=== PATIENT | male | born 1955 | race Two or more races ===

== ENCOUNTER → 2017-07-20 | Outpatient (CLI) | payer BC ==
[2016-02-18 11:00] VITALS: BP 141/77
[~2017-07-20] MED LIST: ALLO300T PO; ATOR10TA60 PO; CHOL200074 PO; DILT240C2 PO; ESCITALOPRAM OX10 MG PO; LINA5TAB4 PO; LISI-334 PO; LOSA100T6 PO; OMEG500C3 PO; PIOG30TA3 PO; PREG75CA PO; SODI650T PO
--- NOTE | 2017-07-20 18:21 | CARD ---
APPROVED REPORT EXAM: Two-dimensional and M-mode echocardiogram with Doppler and color Doppler. Other Information Quality : Average Technically limited study due to body habitus. INDICATION Pre-Op Cardiomegaly 2D DIMENSIONS Left Atrium(2D)5.2 (1.6-4.0cm)IVSd1.3 (0.7-1.1cm) LVDd6.2 (3.9-5.9cm)LVOT Diameter1.9 (1.8-2.4cm) PWd1.7 (0.7-1.1cm)LVDs4.6 (2.5-4.0cm) FS (%) 33.0 %SV100.3 ml LVEF(%)60.0 (>50%) Aortic Valve AoV Peak Cristiano.140.2cm/sAoV VTI27.7cm AO Peak GR.7.9mmHgLVOT Peak Cristiano.79.0cm/s LVOT VTI 14.75cmAO Mean GR.5mmHg RAOUL (VMAX)1.07rk3ZKN (VTI)1.52cm2 Mitral Valve MV E Rfrhuqtx17.8cm/sMV E Peak Gr.160mmHg MV DECEL [id number] A Erywqedh87.7cm/s MV RNP01knN/A Ratio2.8 MVA (PHT)4.15cm2 TDI E/Lateral E'12.9E/Medial E'9.5 Pulmonary Valve PV Peak Laivcmqy74.7cm/sPV Peak Grad.3mmHg Tricuspid Valve TR P. [id number]/sRAP [id number] TR Peak Gr.[id number] LEFT VENTRICLE The Left Ventricle is moderately dilated. There is mild concentric left ventricular hypertrophy. The left ventricular systolic function is normal and the ejection fraction is 60%. There is normal LV seg mental wall motion. RIGHT VENTRICLE The right ventricle is normal size. There is normal right ventricular wall thickness. The right ventr icular systolic function is normal. There is severe pulmonary hypertension. ATRIA The left atrium is moderately dilated. There is mobile echogenicity noted. The right atrium size is m ildly dilated The interatrial septum is intact with no evidence for an atrial septal defect or patent foramen ovale as noted on 2-D or Doppler imaging. AORTIC VALVE The aortic valve is calcified. The aortic valve is dificult to see the structures well Doppler and Co hazel Flow revealed mild aortic regurgitation. There is no significant aortic valvular stenosis. MITRAL VALVE The mitral valve is moderately thickened but opens well. Cannot rule out the possibility of a partial ly flail anterior mitral leaflet There is no evidence of mitral valve prolapse. There is no mitral va lve stenosis. Doppler and Color-flow revealed moderate to severe mitral regurgitation. TRICUSPID VALVE The tricuspid valve is normal in structure Doppler and Color Flow revealed moderate tricuspid regurgi tation. There is moderate pulmonary hypertension. Estimated PA pressure of 60 mmHg PULMONIC VALVE The pulmonary valve is normal in structure There is trivial pulmonic insufficiency. GREAT VESSELS The aortic root is normal in size. The ascending aorta is normal in size. The IVC is mildly dilated b ut collapses with inspiriation. PERICARDIAL EFFUSION There is no pleural effusion. There is no evidence of significant pericardial effusion. Critical Notification Critical Value: No <Conclusion> The left ventricular systolic function is normal and the ejection fraction is 60%. There is mild concentric left ventricular hypertrophy. The Left Ventricle is moderately dilated. The left atrium is moderately dilated. There is a mobile echogenicity noted in the LA The right atrium size is mildly dilated The aortic valve is calcified. The aortic valve is dificult to see the structures well Doppler and Color Flow revealed mild aortic regurgitation. The mitral valve is moderately thickened but opens well. Cannot rule out the possibility of a partial ly flail anterior mitral leaflet Doppler and Color-flow revealed moderate to severe mitral regurgitation. Doppler and Color Flow revealed moderate tricuspid regurgitation. There is moderate pulmonary hypertension. Estimated PA pressure of 60 mmHg There is trivial pulmonic insufficiency. The IVC is mildly dilated but collapses with inspiriation. There is no evidence of significant pericardial effusion.
== END | disposition home or self-care (01) ==
LOC: ECHO 08:31
PROVIDERS: ATTEND Internal Medicine Cardiovascular Disease
DX: Z01.810 Encounter for preprocedural cardiovascular examination (principal); I08.3 Combined rheumatic disorders of mitral, aortic and tricuspid valves; I27.20 Pulmonary hypertension, unspecified; Z86.79 Personal history of other diseases of the circulatory system
CPT/HCPCS: 93306

== ENCOUNTER 2018-02-20 16:52 | Inpatient (IN) | payer BC ==
[2018-02-20 17:37] LABS: ADD MAN DIFF? NO; BASO # 0.1 x10^3/uL (0.0-0.2); BASO % 1 % (0-3); EOS # 0.2 x10^3/uL (0.0-0.7); EOS % 2 % (0-3); LYMPH # 1.1 x10^3/uL (1.0-4.8); LYMPH % 8 % (24-48); MEAN CORPUSCULAR HEMOGLOBIN 34 pg (25-35); MEAN CORPUSCULAR HGB CONC 33 g/dL (31-37); MEAN CORPUSCULAR VOLUME 101 fL (79-100); MONO # 0.7 x10^3/uL (0.0-1.1); MONO % 5 % (0-9); NEUT # 11.8 x10^3uL (1.8-7.7); NEUT % 85 % (31-73); PLATELET COUNT 241 x10^3/uL (140-400); RED BLOOD COUNT 2.67 x10^6/uL (4.30-5.70); RED CELL DISTRIBUTION WIDTH 20.7 % (11.5-14.5); WHITE BLOOD COUNT 13.9 x10^3/uL (4.0-11.0)
[2018-02-20 17:43] LABS: FECAL OB PT NEGATIVE (NEG); NEG OBC FOB NEG; POS OBC FOB POS
[2018-02-20 17:45] LABS: INR 4.2 (0.8-1.1); PROTHROMBIN TIME PATIENT 39.6 SEC (11.7-14.0)
[2018-02-20 17:46] LABS: PARTIAL THROMBOPLASTIN TIME 73 SEC (24-38)
[2018-02-20 17:50] LABS: ANION GAP 13 (6-14); BLOOD UREA NITROGEN 31 mg/dL (8-26); BUN/CREATININE RATIO 8 (6-20); CALCIUM 8.2 mg/dL (8.5-10.1); CARBON DIOXIDE 23 mmol/L (21-32); CHLORIDE 95 mmol/L (98-107); CREATININE 3.7 mg/dL (0.7-1.3); GFR 16.7; GLUCOSE 91 mg/dL (70-99); POTASSIUM 3.5 mmol/L (3.5-5.1); SODIUM 131 mmol/L (136-145)
[2018-02-20 17:56] LABS: ALBUMIN 2.8 g/dL (3.4-5.0); ALBUMIN/GLOBULIN RATIO 0.8 (1.0-1.7); ALK PHOS 86 U/L (46-116); ALT (SGPT) 17 U/L (16-63); AST (SGOT) 16 U/L (15-37); CREATINE KINASE 41 U/L (39-308); TOTAL BILIRUBIN 0.5 mg/dL (0.2-1.0); TOTAL PROTEIN 6.3 g/dL (6.4-8.2)
[2018-02-20 18:05] LABS: TROPONINI 0.079 ng/mL (0.000-0.055)
[2018-02-20 18:06] LABS: CKMB MASS 2.1 ng/mL (0.0-3.6); CREATINE KINASE 40 U/L (39-308)
[2018-02-20 18:10] LABS: LACTIC ACID 1.4 mmol/L (0.4-2.0)
[2018-02-20] MEDS: ONDANSETRON PF 4 MG/2 ML VIAL. IV ×4 (18:33→19:59)
[2018-02-20] MEDS: fentaNYL PF VIAL 100 MCG/2 ML VIAL IV ×2 (18:33→19:57)
[2018-02-20] MEDS ORDERED: ACETAMINOPHEN 325 MG TABLET. PO (18:45)
[2018-02-20 19:53] LABS: PLT ESTIMATE ADEQUATE (ADEQUATE)
[2018-02-20 19:54] LABS: ANISOCYTOSIS MOD
[2018-02-20 19:55] LABS: POC GLUCOSE 96 mg/dL (70-99)
[2018-02-21] MEDS: fentaNYL PF VIAL 100 MCG/2 ML VIAL IV ×6 (00:31→18:05)
[2018-02-21] MEDS: ONDANSETRON PF 4 MG/2 ML VIAL. IV ×2 (03:23→07:22)
[2018-02-21 06:34] LABS: ALBUMIN 2.4 g/dL (3.4-5.0); ALBUMIN/GLOBULIN RATIO 0.7 (1.0-1.7); ALK PHOS 79 U/L (46-116); ALT (SGPT) 13 U/L (16-63); ANION GAP 12 (6-14); AST (SGOT) 13 U/L (15-37); BLOOD UREA NITROGEN 33 mg/dL (8-26); BUN/CREATININE RATIO 8 (6-20); CALCIUM 7.9 mg/dL (8.5-10.1); CARBON DIOXIDE 24 mmol/L (21-32); CHLORIDE 97 mmol/L (98-107); CREATININE 3.9 mg/dL (0.7-1.3); GFR 15.7; GLUCOSE 83 mg/dL (70-99); POTASSIUM 3.1 mmol/L (3.5-5.1); SODIUM 133 mmol/L (136-145); TOTAL BILIRUBIN 0.5 mg/dL (0.2-1.0); TOTAL PROTEIN 5.7 g/dL (6.4-8.2)
[2018-02-21 06:39] LABS: TROPONINI 0.067 ng/mL (0.000-0.055)
[2018-02-21] MEDS: PIPERACILLIN/TAZOBACTAM 2.25 GM in IV NORMAL SALINE 50ML 50 ML IV ×3 (09:20→22:15)
[2018-02-21] MEDS: METOPROLOL TART IMMED RELEASE 25 MG TABLET. PO (12:00)
[2018-02-21] MEDS: METOCLOPRAMIDE HCL 10 MG/2 ML VIAL. IV ×2 (12:15→18:04)
[2018-02-21] MEDS: levETIRAcetam 250 MG TABLET PO ×2 (12:38→21:19)
[2018-02-21] MEDS ORDERED: IV NORMAL SALINE 1000ML BAG 1,000 ML IV ×2 (13:21)
[2018-02-21] MEDS ORDERED: ALBUMIN HUMAN 25% 200 ML IV (13:30)
[2018-02-21] MEDS ORDERED: DIALYSIS PATIENT. MC ×2 (13:30)
[2018-02-21] MEDS: LACTOBACILLUS RHAMNOSUS GG 1 CAPSULE. PO ×2 (18:05→21:19)
[2018-02-21] MEDS: IV NORMAL SALINE 500ML BAG 500 ML IV (19:15)
[2018-02-21 19:46] LABS: INR 4.4 (0.8-1.1); PROTHROMBIN TIME PATIENT 41.4 SEC (11.7-14.0)
[2018-02-21] MEDS: ATORVASTATIN CALCIUM 10 MG TABLET. PO (21:19)
[2018-02-21] MEDS: traZODone 50 MG TABLET. PO (22:15)
[2018-02-22] MEDS: IV NORMAL SALINE 500ML BAG 500 ML IV ×2 (00:59→03:06)
[2018-02-22] MEDS: NOREPINEPHRIN 8MG/250ML PREMIX 250 ML IV (03:41)
[2018-02-22 04:57] LABS: BASO # 0.1 x10^3/uL (0.0-0.2); BASO % 1 % (0-3); EOS # 0.1 x10^3/uL (0.0-0.7); EOS % 1 % (0-3); HEMATOCRIT 24.6 % (39.0-53.0); HEMOGLOBIN 8.2 g/dL (13.0-17.5); LYMPH # 0.7 x10^3/uL (1.0-4.8); LYMPH % 6 % (24-48); MEAN CORPUSCULAR HEMOGLOBIN 34 pg (25-35); MEAN CORPUSCULAR HGB CONC 34 g/dL (31-37); MEAN CORPUSCULAR VOLUME 102 fL (79-100); MONO # 0.7 x10^3/uL (0.0-1.1); MONO % 6 % (0-9); NEUT # 9.2 x10^3uL (1.8-7.7); NEUT % 86 % (31-73); PLATELET COUNT 154 x10^3/uL (140-400); RED BLOOD COUNT 2.41 x10^6/uL (4.30-5.70); RED CELL DISTRIBUTION WIDTH 20.7 % (11.5-14.5); WHITE BLOOD COUNT 10.7 x10^3/uL (4.0-11.0)
[2018-02-22 05:09] LABS: INR 4.1 (0.8-1.1)
[2018-02-22 05:10] LABS: ADD MAN DIFF? YES
[2018-02-22 05:36] LABS: ANION GAP 9 (6-14); BLOOD UREA NITROGEN 14 mg/dL (8-26); CALCIUM 7.1 mg/dL (8.5-10.1); CARBON DIOXIDE 26 mmol/L (21-32); CHLORIDE 99 mmol/L (98-107); CREATININE 2.5 mg/dL (0.7-1.3); GFR 26.3; GLUCOSE 93 mg/dL (70-99); SODIUM 134 mmol/L (136-145)
[2018-02-22] MEDS: PIPERACILLIN/TAZOBACTAM 2.25 GM in IV NORMAL SALINE 50ML 50 ML IV ×2 (05:51→14:41)
[2018-02-22] MEDS ORDERED: POTASSIUM CHLORIDE 20MEQ 50 ML IV (06:45)
[2018-02-22] MEDS: POTASSIUM CHLORIDE 10MEQ 100 ML IV ×3 (07:00→08:00)
[2018-02-22] MEDS: POTASSIUM CHLORIDE 20 MEQ TABLET.ER. PO (10:52)
[2018-02-22] MEDS: LACTOBACILLUS RHAMNOSUS GG 1 CAPSULE. PO ×2 (10:52→20:44)
[2018-02-22] MEDS: levETIRAcetam 250 MG TABLET PO ×2 (10:52→20:44)
[2018-02-22 11:45] LABS: % BANDS 14 % (0-9); % EOS 1 % (0-5); % LYMPHS 5 % (24-48); % MONOS 4 % (0-10); % SEGS 76 % (35-66)
[2018-02-22 11:46] LABS: ANISOCYTOSIS MOD; PLT ESTIMATE ADEQUATE (ADEQUATE)
[2018-02-22] MEDS: ONDANSETRON PF 4 MG/2 ML VIAL. IV (17:57)
[2018-02-22 18:15] LABS: GIARDIA ANTIGEN Negative (Negative)
[2018-02-22] MEDS: DIGOXIN IV 500 MCG/2 ML AMPUL. IV (19:46)
[2018-02-22] MEDS: ATORVASTATIN CALCIUM 10 MG TABLET. PO (20:44)
[2018-02-22] MEDS: VANCOMYCIN 125 MG/2.5 ML ORAL SOLUTION. PO (23:22)
[2018-02-23] MEDS: DIGOXIN IV 500 MCG/2 ML AMPUL. IV (01:36)
[2018-02-23] MEDS: VANCOMYCIN 125 MG/2.5 ML ORAL SOLUTION. PO ×4 (05:41→23:23)
[2018-02-23 05:51] LABS: ADD MAN DIFF? NO
[2018-02-23 05:56] LABS: BASO # 0.1 x10^3/uL (0.0-0.2); BASO % 1 % (0-3); EOS # 0.3 x10^3/uL (0.0-0.7); EOS % 3 % (0-3); HEMATOCRIT 24.8 % (39.0-53.0); HEMOGLOBIN 8.2 g/dL (13.0-17.5); LYMPH # 0.6 x10^3/uL (1.0-4.8); LYMPH % 5 % (24-48); MEAN CORPUSCULAR HEMOGLOBIN 34 pg (25-35); MEAN CORPUSCULAR HGB CONC 33 g/dL (31-37); MEAN CORPUSCULAR VOLUME 101 fL (79-100); MONO # 0.7 x10^3/uL (0.0-1.1); MONO % 6 % (0-9); NEUT # 9.5 x10^3uL (1.8-7.7); NEUT % 85 % (31-73); PLATELET COUNT 156 x10^3/uL (140-400); RED BLOOD COUNT 2.45 x10^6/uL (4.30-5.70); RED CELL DISTRIBUTION WIDTH 20.3 % (11.5-14.5); WHITE BLOOD COUNT 11.2 x10^3/uL (4.0-11.0)
[2018-02-23 06:05] LABS: INR 3.1 (0.8-1.1); PROTHROMBIN TIME PATIENT 31.4 SEC (11.7-14.0)
[2018-02-23 06:07] LABS: C DIFF BY PCR Positive (Negative)
[2018-02-23 06:20] LABS: MRSA BY PCR Negative (Negative)
[2018-02-23 06:38] LABS: ANION GAP 9 (6-14); BLOOD UREA NITROGEN 20 mg/dL (8-26); CALCIUM 7.4 mg/dL (8.5-10.1); CARBON DIOXIDE 25 mmol/L (21-32); CHLORIDE 99 mmol/L (98-107); CREATININE 3.7 mg/dL (0.7-1.3); GFR 16.7; GLUCOSE 89 mg/dL (70-99); POTASSIUM 3.1 mmol/L (3.5-5.1); SODIUM 133 mmol/L (136-145)
[2018-02-23] MEDS ORDERED: IV NORMAL SALINE 1000ML BAG 1,000 ML IV (08:00)
[2018-02-23] MEDS ORDERED: DIALYSIS PATIENT. MC ×2 (11:00)
[2018-02-23] MEDS ORDERED: 0.9 % SODIUM CHLORIDE 10 ML DISP.SYRIN. IV ×2 (11:00)
[2018-02-23 12:23] LABS: CRYPTOSPORIDIUM AG Negative (Negative)
[2018-02-23 12:43] LABS: POC GLUCOSE 102 mg/dL (70-99)
[2018-02-23] MEDS: LACTOBACILLUS RHAMNOSUS GG 1 CAPSULE. PO ×2 (13:11→20:45)
[2018-02-23 13:53] LABS: POC GLUCOSE 128 mg/dL (70-99)
[2018-02-23] MEDS: levETIRAcetam 250 MG TABLET PO ×2 (13:59→20:45)
[2018-02-23] MEDS: ATORVASTATIN CALCIUM 10 MG TABLET. PO (20:45)
[2018-02-24 06:02] LABS: ANION GAP 7 (6-14); BLOOD UREA NITROGEN 10 mg/dL (8-26); CALCIUM 7.6 mg/dL (8.5-10.1); CARBON DIOXIDE 27 mmol/L (21-32); CHLORIDE 102 mmol/L (98-107); GFR 21.3; GLUCOSE 111 mg/dL (70-99); SODIUM 136 mmol/L (136-145)
[2018-02-24 06:22] LABS: INR 2.2 (0.8-1.1); PROTHROMBIN TIME PATIENT 23.8 SEC (11.7-14.0)
[2018-02-24] MEDS ORDERED: ONDANSETRON PF 4 MG/2 ML VIAL. IV (07:00)
[2018-02-24] MEDS ORDERED: MORPHINE SULFATE 2 MG/ML DISP.SYRIN. IV (07:00)
[2018-02-24] MEDS: IV RINGERS,LACTATED 1000ML 1,000 ML IV (07:00)
[2018-02-24] MEDS ORDERED: LIDOCAINE 1% PF 2 ML VIAL. ID (07:00)
[2018-02-24] MEDS ORDERED: fentaNYL PF VIAL 100 MCG/2 ML VIAL IV ×2 (07:00)
[2018-02-24] MEDS: VANCOMYCIN 125 MG/2.5 ML ORAL SOLUTION. PO ×4 (08:35→23:51)
[2018-02-24] MEDS: levETIRAcetam 250 MG TABLET PO ×2 (08:35→20:53)
[2018-02-24] MEDS: LACTOBACILLUS RHAMNOSUS GG 1 CAPSULE. PO ×2 (09:15→20:53)
[2018-02-24] MEDS: POTASSIUM CHLORIDE 10 MEQ TABLET.ER. PO ×3 (09:27→17:23)
[2018-02-24] MEDS: METOCLOPRAMIDE HCL 10 MG/2 ML VIAL. IV (12:00)
[2018-02-24] MEDS: ONDANSETRON PF 4 MG/2 ML VIAL. IV (12:05)
[2018-02-24] MEDS: ALBUMIN HUMAN 5% 500 ML IV ×2 (16:06→18:18)
[2018-02-24] MEDS: ATORVASTATIN CALCIUM 10 MG TABLET. PO (20:53)
[2018-02-24] MEDS: ACETAMINOPHEN 500 MG TABLET PO (20:55)
[2018-02-24] MEDS: traZODone 50 MG TABLET. PO (23:51)
[2018-02-25] MEDS: VANCOMYCIN 125 MG/2.5 ML ORAL SOLUTION. PO ×4 (05:38→23:20)
[2018-02-25 06:37] LABS: ANION GAP 8 (6-14); BLOOD UREA NITROGEN 15 mg/dL (8-26); CALCIUM 7.6 mg/dL (8.5-10.1); CARBON DIOXIDE 24 mmol/L (21-32); CHLORIDE 101 mmol/L (98-107); CREATININE 3.9 mg/dL (0.7-1.3); GFR 15.7; GLUCOSE 136 mg/dL (70-99); SODIUM 133 mmol/L (136-145)
[2018-02-25 06:38] LABS: POTASSIUM 2.8 mmol/L (3.5-5.1)
[2018-02-25 07:17] LABS: INR 1.5 (0.8-1.1); PROTHROMBIN TIME PATIENT 17.5 SEC (11.7-14.0)
[2018-02-25] MEDS ORDERED: POTASSIUM CHLORIDE 20 MEQ TABLET.ER. PO (07:30)
[2018-02-25] MEDS ORDERED: IV NORMAL SALINE 1000ML BAG 1,000 ML IV (09:05)
[2018-02-25] MEDS ORDERED: DIALYSIS PATIENT. MC ×2 (09:15)
[2018-02-25] MEDS ORDERED: 0.9 % SODIUM CHLORIDE 10 ML DISP.SYRIN. IV ×2 (09:15)
[2018-02-25] MEDS: ARGATROBAN PER PHARMACY. MC ×7 (09:47→20:01)
[2018-02-25 10:37] LABS: PARTIAL THROMBOPLASTIN TIME 48 SEC (24-38)
[2018-02-25] MEDS: LACTOBACILLUS RHAMNOSUS GG 1 CAPSULE. PO ×2 (12:14→21:03)
[2018-02-25] MEDS: SODIUM CHLORIDE 0.9% IV (12:14)
[2018-02-25] MEDS: ARGATROBAN IV (12:14)
[2018-02-25] MEDS: POTASSIUM CHLORIDE 10 MEQ TABLET.ER. PO ×3 (12:15→21:03)
[2018-02-25] MEDS: levETIRAcetam 250 MG TABLET PO ×2 (12:15→21:03)
[2018-02-25 15:00] LABS: PARTIAL THROMBOPLASTIN TIME 84 SEC (24-38)
[2018-02-25] MEDS: POTASSIUM CHLORIDE 20 MEQ TABLET.ER. PO (16:09)
[2018-02-25] MEDS: METOCLOPRAMIDE HCL 10 MG/2 ML VIAL. IV (18:02)
[2018-02-25] MEDS: CYCLOBENZAPRINE 10 MG TABLET. PO (18:40)
[2018-02-25 19:12] LABS: PARTIAL THROMBOPLASTIN TIME 71 SEC (24-38)
[2018-02-25] MEDS: ACETAMINOPHEN 500 MG TABLET PO (21:03)
[2018-02-25] MEDS: ATORVASTATIN CALCIUM 10 MG TABLET. PO (21:03)
[2018-02-25] MEDS: NOREPINEPHRIN 8MG/250ML PREMIX 250 ML IV (21:03)
[2018-02-25] MEDS: traZODone 50 MG TABLET. PO (22:46)
[2018-02-25 23:49] LABS: PARTIAL THROMBOPLASTIN TIME 74 SEC (24-38)
[2018-02-26 03:45] LABS: PARTIAL THROMBOPLASTIN TIME 84 SEC (24-38)
[2018-02-26 05:04] LABS: ADD MAN DIFF? NO
[2018-02-26 05:06] LABS: BASO # 0.1 x10^3/uL (0.0-0.2); BASO % 1 % (0-3); EOS # 0.3 x10^3/uL (0.0-0.7); EOS % 5 % (0-3); HEMATOCRIT 23.9 % (39.0-53.0); HEMOGLOBIN 8.1 g/dL (13.0-17.5); LYMPH # 1.3 x10^3/uL (1.0-4.8); LYMPH % 17 % (24-48); MEAN CORPUSCULAR HEMOGLOBIN 34 pg (25-35); MEAN CORPUSCULAR HGB CONC 34 g/dL (31-37); MEAN CORPUSCULAR VOLUME 101 fL (79-100); MONO # 0.9 x10^3/uL (0.0-1.1); MONO % 11 % (0-9); NEUT # 5.1 x10^3uL (1.8-7.7); NEUT % 66 % (31-73); PLATELET COUNT 147 x10^3/uL (140-400); RED BLOOD COUNT 2.36 x10^6/uL (4.30-5.70); RED CELL DISTRIBUTION WIDTH 19.2 % (11.5-14.5); WHITE BLOOD COUNT 7.7 x10^3/uL (4.0-11.0)
[2018-02-26 05:10] LABS: ANION GAP 7 (6-14); BLOOD UREA NITROGEN 11 mg/dL (8-26); CALCIUM 7.4 mg/dL (8.5-10.1); CARBON DIOXIDE 27 mmol/L (21-32); CHLORIDE 100 mmol/L (98-107); CREATININE 2.9 mg/dL (0.7-1.3); GFR 22.2; GLUCOSE 129 mg/dL (70-99); POTASSIUM 3.1 mmol/L (3.5-5.1); SODIUM 134 mmol/L (136-145)
[2018-02-26] MEDS: VANCOMYCIN 125 MG/2.5 ML ORAL SOLUTION. PO ×4 (06:09→23:27)
[2018-02-26] MEDS: ARGATROBAN PER PHARMACY. MC (07:27)
[2018-02-26] MEDS: LACTOBACILLUS RHAMNOSUS GG 1 CAPSULE. PO ×2 (09:43→21:48)
[2018-02-26] MEDS: levETIRAcetam 250 MG TABLET PO ×2 (09:43→21:49)
[2018-02-26] MEDS: POTASSIUM CHLORIDE 10 MEQ TABLET.ER. PO ×4 (09:43→21:50)
[2018-02-26 12:34] LABS: PROTHROMBIN TIME PATIENT 21.7 SEC (11.7-14.0)
[2018-02-26] MEDS: CYCLOBENZAPRINE 10 MG TABLET. PO ×2 (16:14→21:48)
[2018-02-26 18:14] LABS: POC GLUCOSE 130 mg/dL (70-99)
[2018-02-26] MEDS: ATORVASTATIN CALCIUM 10 MG TABLET. PO (21:48)
[2018-02-26] MEDS: ACETAMINOPHEN 500 MG TABLET PO (21:49)
[2018-02-26] MEDS: traZODone 50 MG TABLET. PO (23:27)
[2018-02-27] MEDS: diphenhydrAMINE 50 MG/ML VIAL IVP (05:07)
[2018-02-27] MEDS: VANCOMYCIN 125 MG/2.5 ML ORAL SOLUTION. PO ×3 (05:47→18:31)
[2018-02-27 06:13] LABS: ANION GAP 6 (6-14); BLOOD UREA NITROGEN 15 mg/dL (8-26); CALCIUM 7.6 mg/dL (8.5-10.1); CARBON DIOXIDE 25 mmol/L (21-32); CHLORIDE 100 mmol/L (98-107); CREATININE 3.9 mg/dL (0.7-1.3); GFR 15.7; GLUCOSE 115 mg/dL (70-99); POTASSIUM 3.4 mmol/L (3.5-5.1); SODIUM 131 mmol/L (136-145)
[2018-02-27 06:15] LABS: PARTIAL THROMBOPLASTIN TIME 84 SEC (24-38)
[2018-02-27] MEDS: ARGATROBAN PER PHARMACY. MC (07:43)
[2018-02-27] MEDS: LACTOBACILLUS RHAMNOSUS GG 1 CAPSULE. PO ×2 (09:03→20:17)
[2018-02-27] MEDS: levETIRAcetam 250 MG TABLET PO ×2 (09:04→20:17)
[2018-02-27] MEDS: POTASSIUM CHLORIDE 10 MEQ TABLET.ER. PO ×4 (09:04→20:17)
[2018-02-27] MEDS: SODIUM CHLORIDE 0.9% IV (13:46)
[2018-02-27] MEDS: ARGATROBAN IV (13:46)
[2018-02-27] MEDS: ATORVASTATIN CALCIUM 10 MG TABLET. PO (20:17)
[2018-02-27] MEDS: ACETAMINOPHEN 500 MG TABLET PO (20:21)
[2018-02-27] MEDS: traZODone 50 MG TABLET. PO ×2 (20:21→20:24)
[2018-02-28] MEDS: VANCOMYCIN 125 MG/2.5 ML ORAL SOLUTION. PO ×4 (00:12→17:25)
[2018-02-28] MEDS: diphenhydrAMINE 50 MG/ML VIAL IVP (07:59)
[2018-02-28] MEDS: POTASSIUM CHLORIDE 10 MEQ TABLET.ER. PO ×4 (07:59→21:15)
[2018-02-28] MEDS: LACTOBACILLUS RHAMNOSUS GG 1 CAPSULE. PO ×2 (09:00→21:14)
[2018-02-28] MEDS: levETIRAcetam 250 MG TABLET PO ×2 (09:01→21:15)
[2018-02-28 09:51] LABS: PARTIAL THROMBOPLASTIN TIME 73 SEC (24-38)
[2018-02-28] MEDS: ONDANSETRON PF 4 MG/2 ML VIAL. IV (11:47)
[2018-02-28] MEDS ORDERED: IV NORMAL SALINE 1000ML BAG 1,000 ML IV ×2 (13:18)
[2018-02-28] MEDS ORDERED: DIALYSIS PATIENT. MC ×2 (13:30)
[2018-02-28] MEDS: ARGATROBAN PER PHARMACY. MC (14:04)
[2018-02-28] MEDS: ALBUMIN HUMAN 25% 100 ML IV (14:30)
[2018-02-28 14:32] LABS: ADD MAN DIFF? NO
[2018-02-28 14:35] LABS: BASO # 0.1 x10^3/uL (0.0-0.2); BASO % 1 % (0-3); EOS # 0.2 x10^3/uL (0.0-0.7); EOS % 3 % (0-3); HEMATOCRIT 22.9 % (39.0-53.0); HEMOGLOBIN 7.6 g/dL (13.0-17.5); LYMPH # 0.8 x10^3/uL (1.0-4.8); LYMPH % 12 % (24-48); MEAN CORPUSCULAR HEMOGLOBIN 34 pg (25-35); MEAN CORPUSCULAR HGB CONC 33 g/dL (31-37); MEAN CORPUSCULAR VOLUME 102 fL (79-100); MONO # 0.5 x10^3/uL (0.0-1.1); MONO % 7 % (0-9); NEUT # 5.4 x10^3uL (1.8-7.7); NEUT % 78 % (31-73); PLATELET COUNT 137 x10^3/uL (140-400); RED BLOOD COUNT 2.25 x10^6/uL (4.30-5.70); RED CELL DISTRIBUTION WIDTH 18.7 % (11.5-14.5)
[2018-02-28 14:47] LABS: ANION GAP 5 (6-14); BLOOD UREA NITROGEN 21 mg/dL (8-26); CALCIUM 7.6 mg/dL (8.5-10.1); CARBON DIOXIDE 26 mmol/L (21-32); CHLORIDE 98 mmol/L (98-107); CREATININE 4.7 mg/dL (0.7-1.3); GFR 12.7; GLUCOSE 183 mg/dL (70-99); MAGNESIUM 1.6 mg/dL (1.8-2.4); POTASSIUM 3.8 mmol/L (3.5-5.1); SODIUM 129 mmol/L (136-145)
[2018-02-28] MEDS: MAGNESIUM SULFATE 2GM 50 ML IV (16:25)
[2018-02-28] MEDS: DIGOXIN IV 500 MCG/2 ML AMPUL. IV (19:55)
[2018-02-28] MEDS: ALBUMIN HUMAN 5% 500 ML IV (19:59)
[2018-02-28] MEDS: ATORVASTATIN CALCIUM 10 MG TABLET. PO (21:14)
[2018-02-28] MEDS: CYCLOBENZAPRINE 10 MG TABLET. PO (21:15)
[2018-02-28] MEDS: ALPRAZolam 0.5 MG TABLET PO (21:48)
[2018-02-28] MEDS: diphenhydrAMINE HCL 25 MG CAPSULE PO (21:48)
[2018-02-28] MEDS: ARGATROBAN IV (21:54)
[2018-02-28] MEDS: SODIUM CHLORIDE 0.9% IV (21:54)
[2018-03-01] MEDS: VANCOMYCIN 125 MG/2.5 ML ORAL SOLUTION. PO ×5 (00:12→23:31)
[2018-03-01] MEDS: traZODone 50 MG TABLET. PO ×2 (00:22→23:31)
[2018-03-01] MEDS ORDERED: PAPAVERINE 60 MG/2 ML VIAL FOR OR ONLY. (06:06)
[2018-03-01] MEDS ORDERED: SURGICEL FIBRILLAR 1X2 EACH. (06:06)
[2018-03-01] MEDS: NOREPINEPHRIN 8MG/250ML PREMIX 250 ML IV (06:16)
[2018-03-01 06:33] LABS: ADD MAN DIFF? NO
[2018-03-01 06:36] LABS: BASO # 0.1 x10^3/uL (0.0-0.2); BASO % 1 % (0-3); EOS # 0.2 x10^3/uL (0.0-0.7); EOS % 3 % (0-3); HEMOGLOBIN 7.1 g/dL (13.0-17.5); LYMPH # 0.8 x10^3/uL (1.0-4.8); LYMPH % 13 % (24-48); MEAN CORPUSCULAR HEMOGLOBIN 34 pg (25-35); MEAN CORPUSCULAR HGB CONC 34 g/dL (31-37); MEAN CORPUSCULAR VOLUME 100 fL (79-100); MONO # 0.4 x10^3/uL (0.0-1.1); MONO % 7 % (0-9); NEUT # 4.6 x10^3uL (1.8-7.7); NEUT % 77 % (31-73); PLATELET COUNT 107 x10^3/uL (140-400); RED BLOOD COUNT 2.07 x10^6/uL (4.30-5.70); RED CELL DISTRIBUTION WIDTH 18.9 % (11.5-14.5)
[2018-03-01 06:40] LABS: HEMATOCRIT 20.7 % (39.0-53.0)
[2018-03-01 06:45] LABS: INR 2.1 (0.8-1.1); PROTHROMBIN TIME PATIENT 22.7 SEC (11.7-14.0)
[2018-03-01 06:46] LABS: PARTIAL THROMBOPLASTIN TIME 77 SEC (24-38)
[2018-03-01] MEDS ORDERED: LIDOCAINE 1% PF 2 ML VIAL. ID (07:00)
[2018-03-01] MEDS ORDERED: fentaNYL PF VIAL 100 MCG/2 ML VIAL IV (07:00)
[2018-03-01] MEDS ORDERED: MORPHINE SULFATE 2 MG/ML DISP.SYRIN. IV (07:00)
[2018-03-01 07:06] LABS: ANION GAP 4 (6-14); BLOOD UREA NITROGEN 10 mg/dL (8-26); CALCIUM 7.5 mg/dL (8.5-10.1); CARBON DIOXIDE 29 mmol/L (21-32); CHLORIDE 103 mmol/L (98-107); CREATININE 2.8 mg/dL (0.7-1.3); GFR 23.1; GLUCOSE 99 mg/dL (70-99); MAGNESIUM 1.7 mg/dL (1.8-2.4); POTASSIUM 3.8 mmol/L (3.5-5.1); SODIUM 136 mmol/L (136-145)
[2018-03-01] MEDS: POTASSIUM CHLORIDE 10 MEQ TABLET.ER. PO ×4 (07:30→20:50)
[2018-03-01] MEDS: ARGATROBAN PER PHARMACY. MC (08:51)
[2018-03-01] MEDS: LACTOBACILLUS RHAMNOSUS GG 1 CAPSULE. PO ×2 (09:00→20:50)
[2018-03-01] MEDS: levETIRAcetam 250 MG TABLET PO ×2 (10:16→20:50)
[2018-03-01] MEDS ORDERED: ceFAZolin 2GM PREMIX 2 GM/50 ML BAG IV (13:00)
[2018-03-01 13:02] LABS: IMMEDIATE SPIN CROSSMATCH 1 1
[2018-03-01] MEDS ORDERED: LIDOCAINE 2% 100 MG/5 ML SYRINGE. (13:29)
[2018-03-01] MEDS ORDERED: ONDANSETRON PF 4 MG/2 ML VIAL. (13:36)
[2018-03-01] MEDS ORDERED: PROPOFOL 20 ML IV (13:36)
[2018-03-01] MEDS ORDERED: DEXAMETHASONE SOD PHOS 20 MG/5 ML VIAL. (13:36)
[2018-03-01] MEDS ORDERED: LIDOCAINE 2% PF Vial for OR 5 ML VIAL. (13:36)
[2018-03-01] MEDS ORDERED: FAMOTIDINE 20 MG/2 ML VIAL (13:36)
[2018-03-01] MEDS ORDERED: SUCCINYLCHOLINE 200 MG/10 ML VIAL. (13:38)
[2018-03-01] MEDS ORDERED: fentaNYL PF VIAL 100 MCG/2 ML VIAL (13:38)
[2018-03-01] MEDS: LIDOCAINE 2% 100 MG/5 ML SYRINGE. IV ×2 (13:39→13:42)
[2018-03-01] MEDS ORDERED: ceFAZolin SODIUM 1 GM VIAL ×2 (14:16→14:17)
[2018-03-01] MEDS: HEPARIN SODIUM 5,000 UNIT in IV NORMAL SALINE 500ML BAG 500 ML IRR (14:22)
[2018-03-01] MEDS ORDERED: ePHEDrine PF IN SALINE 50 MG/5 ML DISP.SYRIN IV (14:23)
[2018-03-01] MEDS ORDERED: DESFLURANE 61 TO 120 MINUTES IH (15:08)
[2018-03-01] MEDS: fentaNYL PF VIAL 100 MCG/2 ML VIAL IV (15:40)
[2018-03-01] MEDS: ONDANSETRON PF 4 MG/2 ML VIAL. IV (17:58)
[2018-03-01 18:03] LABS: POC GLUCOSE 115 mg/dL (70-99)
[2018-03-01] MEDS: MAGNESIUM SULFATE 2GM 50 ML IV (19:58)
[2018-03-01] MEDS: ATORVASTATIN CALCIUM 10 MG TABLET. PO (20:50)
[2018-03-01] MEDS: diphenhydrAMINE HCL 25 MG CAPSULE PO (20:50)
[2018-03-01] MEDS: ALPRAZolam 0.5 MG TABLET PO (20:50)
[2018-03-02] MEDS: diphenhydrAMINE HCL 25 MG CAPSULE PO ×2 (03:35→21:15)
[2018-03-02] MEDS: VANCOMYCIN 125 MG/2.5 ML ORAL SOLUTION. PO ×4 (06:20→23:55)
[2018-03-02 07:01] LABS: ANION GAP 5 (6-14); BLOOD UREA NITROGEN 16 mg/dL (8-26); CALCIUM 7.9 mg/dL (8.5-10.1); CARBON DIOXIDE 27 mmol/L (21-32); CHLORIDE 101 mmol/L (98-107); CREATININE 3.4 mg/dL (0.7-1.3); GFR 18.4; GLUCOSE 141 mg/dL (70-99); MAGNESIUM 2.2 mg/dL (1.8-2.4); POTASSIUM 4.4 mmol/L (3.5-5.1); SODIUM 133 mmol/L (136-145)
[2018-03-02 07:05] LABS: HEMATOCRIT 22.8 % (39.0-53.0); HEMOGLOBIN 7.7 g/dL (13.0-17.5); MEAN CORPUSCULAR HEMOGLOBIN 34 pg (25-35); MEAN CORPUSCULAR HGB CONC 34 g/dL (31-37); MEAN CORPUSCULAR VOLUME 100 fL (79-100); PLATELET COUNT 107 x10^3/uL (140-400); RED BLOOD COUNT 2.27 x10^6/uL (4.30-5.70); RED CELL DISTRIBUTION WIDTH 19.7 % (11.5-14.5); WHITE BLOOD COUNT 6.7 x10^3/uL (4.0-11.0)
[2018-03-02] MEDS: POTASSIUM CHLORIDE 10 MEQ TABLET.ER. PO ×4 (07:30→21:11)
[2018-03-02 07:48] LABS: PARTIAL THROMBOPLASTIN TIME 43 SEC (24-38)
[2018-03-02] MEDS ORDERED: IV NORMAL SALINE 1000ML BAG 1,000 ML IV ×2 (09:17)
[2018-03-02] MEDS ORDERED: 0.9 % SODIUM CHLORIDE 10 ML DISP.SYRIN. IV ×2 (09:30)
[2018-03-02] MEDS ORDERED: DIALYSIS PATIENT. MC (09:30)
[2018-03-02] MEDS ORDERED: diphenhydrAMINE 50 MG/ML VIAL IV ×2 (09:30)
[2018-03-02] MEDS: ARGATROBAN PER PHARMACY. MC (09:39)
[2018-03-02] MEDS: LIDOCAINE 1% PF 30 ML VIAL. INJ (11:41)
[2018-03-02] MEDS: HEPARIN SODIUM 5,000 UNIT in IV NORMAL SALINE 500ML BAG 500 ML IRR (11:41)
[2018-03-02] MEDS: IV RINGERS,LACTATED 1000ML 1,000 ML IV (11:41)
[2018-03-02] MEDS: LACTOBACILLUS RHAMNOSUS GG 1 CAPSULE. PO ×2 (13:00→21:16)
[2018-03-02] MEDS: levETIRAcetam 250 MG TABLET PO ×2 (13:00→21:16)
[2018-03-02 14:00] LABS: HEPATITIS B SURFACE AG Nonreactive (Nonreactive)
[2018-03-02] MEDS: WARFARIN 5 MG TABLET. PO (14:37)
[2018-03-02] MEDS: SODIUM CHLORIDE 0.9% IV (14:46)
[2018-03-02] MEDS: ARGATROBAN IV (14:46)
[2018-03-02 20:21] LABS: POC GLUCOSE 121 mg/dL (70-99)
[2018-03-02] MEDS: ATORVASTATIN CALCIUM 10 MG TABLET. PO (21:16)
[2018-03-02] MEDS: CYCLOBENZAPRINE 10 MG TABLET. PO (21:16)
[2018-03-03] MEDS: ALPRAZolam 0.5 MG TABLET PO ×2 (01:17→21:21)
[2018-03-03] MEDS: ALBUTEROL SULFATE 2.5 MG/3 ML NEBU. NEB (01:36)
[2018-03-03] MEDS: traZODone 50 MG TABLET. PO ×2 (01:42→21:21)
[2018-03-03 05:16] LABS: ADD MAN DIFF? NO
[2018-03-03 05:22] LABS: BASO % 1 % (0-3); EOS # 0.1 x10^3/uL (0.0-0.7); EOS % 2 % (0-3); HEMATOCRIT 21.4 % (39.0-53.0); HEMOGLOBIN 7.2 g/dL (13.0-17.5); LYMPH # 0.8 x10^3/uL (1.0-4.8); LYMPH % 11 % (24-48); MEAN CORPUSCULAR HEMOGLOBIN 34 pg (25-35); MEAN CORPUSCULAR HGB CONC 34 g/dL (31-37); MEAN CORPUSCULAR VOLUME 101 fL (79-100); MONO # 0.4 x10^3/uL (0.0-1.1); MONO % 6 % (0-9); NEUT % 81 % (31-73); PLATELET COUNT 109 x10^3/uL (140-400); RED BLOOD COUNT 2.13 x10^6/uL (4.30-5.70); WHITE BLOOD COUNT 7.4 x10^3/uL (4.0-11.0)
[2018-03-03 05:35] LABS: INR 2.1 (0.8-1.1); PROTHROMBIN TIME PATIENT 22.8 SEC (11.7-14.0)
[2018-03-03 05:38] LABS: ANION GAP 4 (6-14); BLOOD UREA NITROGEN 12 mg/dL (8-26); CALCIUM 7.6 mg/dL (8.5-10.1); CARBON DIOXIDE 30 mmol/L (21-32); CHLORIDE 104 mmol/L (98-107); CREATININE 2.6 mg/dL (0.7-1.3); GFR 25.1; GLUCOSE 106 mg/dL (70-99); POTASSIUM 3.9 mmol/L (3.5-5.1); SODIUM 138 mmol/L (136-145)
[2018-03-03] MEDS: VANCOMYCIN 125 MG/2.5 ML ORAL SOLUTION. PO ×4 (05:49→23:52)
[2018-03-03] MEDS ORDERED: LIDOCAINE 1% PF 2 ML VIAL. ID (07:00)
[2018-03-03] MEDS ORDERED: fentaNYL PF VIAL 100 MCG/2 ML VIAL IV ×2 (07:00)
[2018-03-03] MEDS: IV RINGERS,LACTATED 1000ML 1,000 ML IV (07:00)
[2018-03-03] MEDS ORDERED: MORPHINE SULFATE 2 MG/ML DISP.SYRIN. IV (07:00)
[2018-03-03] MEDS ORDERED: ONDANSETRON PF 4 MG/2 ML VIAL. IV (07:00)
[2018-03-03] MEDS: POTASSIUM CHLORIDE 10 MEQ TABLET.ER. PO ×4 (07:30→21:20)
[2018-03-03 08:07] LABS: POC GLUCOSE 94 mg/dL (70-99)
[2018-03-03] MEDS: LACTOBACILLUS RHAMNOSUS GG 1 CAPSULE. PO ×2 (09:00→21:20)
[2018-03-03] MEDS: levETIRAcetam 250 MG TABLET PO ×2 (09:00→21:20)
[2018-03-03 11:25] LABS: POC GLUCOSE 85 mg/dL (70-99)
[2018-03-03] MEDS: IV NORMAL SALINE 1000ML BAG 1,000 ML IV (12:38)
[2018-03-03] MEDS: ARGATROBAN PER PHARMACY. MC (13:05)
[2018-03-03] MEDS ORDERED: LIDOCAINE 2% PF Vial for OR 5 ML VIAL. (14:11)
[2018-03-03] MEDS ORDERED: PROPOFOL 20 ML IV (14:11)
[2018-03-03] MEDS: WARFARIN 5 MG TABLET. PO (16:32)
[2018-03-03] MEDS: ARGATROBAN IV (17:54)
[2018-03-03] MEDS: SODIUM CHLORIDE 0.9% IV (17:54)
[2018-03-03] MEDS: DIGOXIN IV 500 MCG/2 ML AMPUL. IV (17:55)
[2018-03-03] MEDS: CYCLOBENZAPRINE 10 MG TABLET. PO (18:38)
[2018-03-03] MEDS: diphenhydrAMINE HCL 25 MG CAPSULE PO (18:38)
[2018-03-03] MEDS: ACETAMINOPHEN 500 MG TABLET PO (18:38)
[2018-03-03] MEDS ORDERED: dilTIAZem IV PUSH 25 MG/5 ML VIAL IVP (19:00)
[2018-03-03 19:36] LABS: FECAL OB PT NEGATIVE (NEG); NEG OBC FOB NEG; POS OBC FOB POS
[2018-03-03] MEDS: ATORVASTATIN CALCIUM 10 MG TABLET. PO (21:20)
[2018-03-03 21:23] LABS: POC GLUCOSE 93 mg/dL (70-99)
[2018-03-04 05:25] LABS: ADD MAN DIFF? NO
[2018-03-04 05:39] LABS: INR 2.1 (0.8-1.1); PROTHROMBIN TIME PATIENT 22.7 SEC (11.7-14.0)
[2018-03-04 05:48] LABS: BASO # 0.1 x10^3/uL (0.0-0.2); BASO % 1 % (0-3); EOS # 0.2 x10^3/uL (0.0-0.7); EOS % 3 % (0-3); HEMATOCRIT 21.5 % (39.0-53.0); HEMOGLOBIN 7.1 g/dL (13.0-17.5); LYMPH # 0.9 x10^3/uL (1.0-4.8); LYMPH % 14 % (24-48); MEAN CORPUSCULAR HEMOGLOBIN 34 pg (25-35); MEAN CORPUSCULAR HGB CONC 33 g/dL (31-37); MEAN CORPUSCULAR VOLUME 102 fL (79-100); MONO # 0.3 x10^3/uL (0.0-1.1); MONO % 5 % (0-9); NEUT % 77 % (31-73); PLATELET COUNT 104 x10^3/uL (140-400); RED BLOOD COUNT 2.11 x10^6/uL (4.30-5.70); RED CELL DISTRIBUTION WIDTH 19.4 % (11.5-14.5); WHITE BLOOD COUNT 6.5 x10^3/uL (4.0-11.0)
[2018-03-04 05:48] LABS: PARTIAL THROMBOPLASTIN TIME 71 SEC (24-38)
[2018-03-04] MEDS: VANCOMYCIN 125 MG/2.5 ML ORAL SOLUTION. PO ×2 (05:53→12:01)
[2018-03-04] MEDS: ACETAMINOPHEN 500 MG TABLET PO (07:25)
[2018-03-04] MEDS: ALPRAZolam 0.5 MG TABLET PO (07:25)
[2018-03-04] MEDS: POTASSIUM CHLORIDE 10 MEQ TABLET.ER. PO ×2 (07:26→12:01)
[2018-03-04 07:28] LABS: POC GLUCOSE 70 mg/dL (70-99)
[2018-03-04 08:17] LABS: FECAL OB PT NEGATIVE (NEG); NEG OBC FOB NEG; POS OBC FOB POS
[2018-03-04] MEDS: levETIRAcetam 250 MG TABLET PO (09:07)
[2018-03-04] MEDS: LACTOBACILLUS RHAMNOSUS GG 1 CAPSULE. PO (09:07)
[2018-03-04 11:43] LABS: POC GLUCOSE 80 mg/dL (70-99)
[2018-03-04] MEDS ORDERED: IV NORMAL SALINE 1000ML BAG 1,000 ML IV ×2 (14:02)
[2018-03-04] MEDS ORDERED: DIALYSIS PATIENT. MC (14:15)
[2018-03-04] MEDS ORDERED: diphenhydrAMINE 50 MG/ML VIAL IV (14:15)
[2018-03-04] MEDS: diphenhydrAMINE 50 MG/ML VIAL IV (15:29)
[2018-03-04] MEDS: WARFARIN 5 MG TABLET. PO (16:21)
== END 2018-03-04 16:31 | disposition home health service (06) | DRG 356 ==
LOC: 1 WEST ICU 19:40 → ER 16:52 → 1 WEST ICU 18:36 → 2 NORTH 03-02 16:42
PROC: 03180ZD Bypass Left Brachial Artery to Upper Arm Vein, Open Approach (ICD-10-PCS; principal; 2018-03-01 13:30)
PROC: 0DJ08ZZ Inspection of Upper Intestinal Tract, Via Natural or Artificial Opening Endoscopic (ICD-10-PCS; 2018-03-01 14:02)
PROC: 5A09357 Assistance with Respiratory Ventilation, Less than 24 Consecutive Hours, Continuous Positive Airway Pressure (ICD-10-PCS; 2018-03-01 14:02)
PROC: 30233N1 Transfusion of Nonautologous Red Blood Cells into Peripheral Vein, Percutaneous Approach (ICD-10-PCS; 2018-03-01 14:02)
PROC: 5A09357 Assistance with Respiratory Ventilation, Less than 24 Consecutive Hours, Continuous Positive Airway Pressure (ICD-10-PCS; 2018-03-01 14:02)
PROC: 5A1D70Z Performance of Urinary Filtration, Intermittent, Less than 6 Hours Per Day (ICD-10-PCS; 2018-03-01 14:02)
PROC: 5A1D70Z Performance of Urinary Filtration, Intermittent, Less than 6 Hours Per Day (ICD-10-PCS; 2018-03-01 14:02)
PROC: 5A1D70Z Performance of Urinary Filtration, Intermittent, Less than 6 Hours Per Day (ICD-10-PCS; 2018-03-01 14:02)
PROC: 5A1D70Z Performance of Urinary Filtration, Intermittent, Less than 6 Hours Per Day (ICD-10-PCS; 2018-03-01 14:02)
PROC: 0DP68UZ Removal of Feeding Device from Stomach, Via Natural or Artificial Opening Endoscopic (ICD-10-PCS; 2018-03-01 14:02)
DX: A04.72 Enterocolitis due to Clostridium difficile, not specified as recurrent (principal); N18.6 End stage renal disease; D68.9 Coagulation defect, unspecified; I13.2 Hypertensive heart and chronic kidney disease with heart failure and with stage 5 chronic kidney disease, or end stage renal disease; Z43.1 Encounter for attention to gastrostomy; I48.91 Unspecified atrial fibrillation; D63.8 Anemia in other chronic diseases classified elsewhere; E11.22 Type 2 diabetes mellitus with diabetic chronic kidney disease; E11.42 Type 2 diabetes mellitus with diabetic polyneuropathy; E86.0 Dehydration; E87.6 Hypokalemia; I50.9 Heart failure, unspecified; E78.5 Hyperlipidemia, unspecified; G47.33 Obstructive sleep apnea (adult) (pediatric); F32.9 Major depressive disorder, single episode, unspecified; M19.90 Unspecified osteoarthritis, unspecified site; M10.9 Gout, unspecified; I34.0 Nonrheumatic mitral (valve) insufficiency; K80.20 Calculus of gallbladder without cholecystitis without obstruction; I27.20 Pulmonary hypertension, unspecified; D75.82 Heparin induced thrombocytopenia (HIT); I25.5 Ischemic cardiomyopathy; I25.10 Atherosclerotic heart disease of native coronary artery without angina pectoris; H91.90 Unspecified hearing loss, unspecified ear; K21.0 Gastro-esophageal reflux disease with esophagitis; K29.70 Gastritis, unspecified, without bleeding; I95.9 Hypotension, unspecified; F41.0 Panic disorder [episodic paroxysmal anxiety]; Z79.2 Long term (current) use of antibiotics; Z99.2 Dependence on renal dialysis; Z79.01 Long term (current) use of anticoagulants; Z88.8 Allergy status to other drugs, medicaments and biological substances; Z95.2 Presence of prosthetic heart valve; Z83.3 Family history of diabetes mellitus; Z82.49 Family history of ischemic heart disease and other diseases of the circulatory system; Z95.5 Presence of coronary angioplasty implant and graft; Z86.74 Personal history of sudden cardiac arrest
CPT/HCPCS: 36415; 71045; 74176; 76705; 80048; 80053; 82274; 82550; 82553; 82962; 83605; 83735; 84484; 85007; 85025; 85027; 85610; 85730; 86850; 86900; 86901; 86920; 87040; 87324; 87328; 87329; 87340; 87641; 93005; 94640; 94660; 96374; 96375; 97116-GP; 97162-GP; 97166-GO; 97530-GP; 97535-GO; 99285; 99285-25; A7015; J0330; J0690; J0883; J1100; J1160; J1200; J1644; J1956; J2001; J2405; J2440; J2543; J2704; J2765; J3010; J3475; J3480; J3490; J7030; J7040; J7613; P9016; P9045; P9046; Q0163; S0028